=== PATIENT | male | born 1950 | race Caucasian/White ===

== ENCOUNTER 2024-02-27 05:49 | Observation (INO) ==
[~2024-02-27 05:49] MED LIST: NS 0.45% 1000 ml BAG 1,000 ML IV SCH; NS 0.9% 1000 ml BAG 1,000 ML IV SCH; Naloxone 0.4 mg VIAL 0.4 mg/ml 1 ml VIAL IV PRN
[2024-02-27] MEDS ORDERED: Iohexol 180 (CONTRAST) 10 ML SDV IV ONE (06:49)
[2024-02-27] MEDS ORDERED: Lidocaine 2% JELLY 10 ML JELLY ONE (06:49)
[2024-02-27 07:00] LABS: Rapid COVID-19 Molecular Undetected (Undetected)
[2024-02-27] MEDS: Acetaminophen IV 1 GM/100ML 1,000 MG/100 ML BAG IV ONE (07:10)
[2024-02-27] MEDS ORDERED: Lidocaine 2% PF 5 ML VIAL ONE (07:11)
[2024-02-27] MEDS ORDERED: fentaNYL 100 mcg/2 ml 50 MCG/ML VIAL ONE ×3 (07:11→09:32)
[2024-02-27] MEDS ORDERED: Midazolam 2 mg/2 ml VIAL 1 mg/ml 2 ml VIAL (2 mg) ONE (07:11)
[2024-02-27] MEDS: Lactated Ringers 1000 ml BAG 1,000 ML IV SCH (07:11)
[2024-02-27] MEDS: Buffered Lidocaine 1% SYRIN 1 ml INTRADERM ONE (07:11)
[2024-02-27] MEDS ORDERED: Ondansetron 4 mg VIAL 2 MG/ML 2 ml VIAL IV PRN ×2 (07:17→10:41)
[2024-02-27] MEDS ORDERED: Famotidine IV 10 MG/ML 2 ml VIAL (20 mg) ONE (07:29)
[2024-02-27] MEDS ORDERED: Rocuronium 50 mg VIAL 10 mg/ml 5 ml VIAL (50 mg) ONE (07:34)
[2024-02-27] MEDS ORDERED: Ondansetron 4 mg VIAL 2 MG/ML 2 ml VIAL ONE (07:35)
[2024-02-27] MEDS ORDERED: Propofol 10 MG/ML 20 ML BTL ONE (07:35)
[2024-02-27] MEDS ORDERED: Furosemide 20 mg/2 ml IV VIAL ONE (08:25)
[2024-02-27] MEDS: fentaNYL 100 mcg/2 ml 50 MCG/ML VIAL IV PRN (09:04)
[2024-02-27] MEDS ORDERED: NS 0.45% 1000 ml BAG 1,000 ML IV SCH (10:00)
[2024-02-27] MEDS ORDERED: Naloxone 0.4 mg VIAL 0.4 mg/ml 1 ml VIAL IV PRN (10:41)
[2024-02-27] MEDS: Ampicillin ADVAN 2 GM in NS 0.9% 100 ML 100 ML IVPB ONE (10:55)
[2024-02-27] MEDS: NS 0.9% 1000 ml BAG 1,000 ML IV SCH ×2 (10:55→11:01)
[2024-02-27] MEDS: Gentamicin ADULT 440 MG in NS 0.9% 100 ml BAG 100 ML IVPB ONE (10:55)
[2024-02-27] MEDS: Alfuzosin ER 10 mg TAB.ER (NF) 10 MG TAB.ER PO SCH ×2 (11:01→12:05)
[2024-02-27] MEDS: Magnesium Hydroxide LIQ 30 ML UDC PO SCH ×2 (11:02→20:38)
[2024-02-27] MEDS: Neomycin/Polym/Bacit TOP OINT 15 GM TOPICAL SCH ×2 (11:02→13:02)
[2024-02-27] MEDS ORDERED: Dextrose 50% Syringe 50 ml 25 GM/50 ML SYRINGE IV PUSH PRN (14:53)
[2024-02-28 06:30] VITALS: BP 126/64
[2024-03-06 17:04] LABS: Interpretation 100% Uric acid.
== END 2024-02-28 10:15 | disposition home or self-care (01) ==
LOC: OR 05:49 → SSU 05:49 → OR 09:15
PROVIDERS: ADMIT Urology; ATTEND Urology